=== PATIENT | female | born 1985 | race Caucasian/White ===

== ENCOUNTER 2018-07-30 04:37 | Inpatient (IN) | payer OTHER ==
--- NOTE | 2018-07-30 05:28 | OBADHP ---
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 Oc Salmeron epidural for pain control expectant management admission labs patient reports GBS negative per last office visit yesterday chart pending Vital Signs Provider: Reviewed; Within Normal Limits IP Chief Complaint: Uterine contractions; Suspected ruptured membranes Dilatation, Provider: Oneal MONTES AdmitDate IP: 39.6 IP Adm Impression: Term, intrauterine IP Admit Plan: Admit to unit
[2018-07-30 05:39] VITALS: BMI 27.9
[2018-07-30 06:07] LABS: BASO # 0.1 K/uL (0.0-0.2); BASO % 0.4 % (0.0-2.0); EOS # 0.1 K/uL (0.0-0.7); EOS % 0.8 % (0.0-4.0); HEMOGLOBIN 13.3 g/dL (11.0-16.0); LYMPH # 1.9 K/uL (1.0-4.3); LYMPH % 15.8 % (20.0-40.0); MEAN CELL VOLUME 89.6 fL (81.0-99.0); MEAN CORPUSCULAR HEMOGLOBIN 31.1 pg (27.0-31.0); MEAN CORPUSCULAR HGB CONC 34.7 g/dL (33.0-37.0); MEAN PLATELET VOLUME 9.4 fL (7.2-11.7); MONO # 0.7 K/uL (0.0-0.8); MONO % 5.5 % (0.0-10.0); NEUT # 9.3 K/uL (1.8-7.0); NEUT % 77.5 % (50.0-75.0); RBC 4.28 Mil/uL (3.80-5.20); RED CELL DISTRIBUTION WIDTH 13.6 % (11.5-14.5)
[2018-07-30] MEDS ORDERED: Fentanyl/Bupivacaine HCl 250 ML EPI ONE (06:26)
--- NOTE | 2018-07-30 07:15 | OBADHP ---
Datetime: 07/30/2018 05:23 FHR - Baseline A Provider: 130 Contraction Comments Provider: q1-4 IP Hx Assessment: The History has been Reviewed and is Current NICHD Variability Prov Fetus A: Moderate 6-25bpm NICHD Accel Fetus A IP Provider: [id number] FHR Category Provider Fetus A: Category I EGA AdmitDate IP: 39.6 IP Adm Impression: Term, intrauterine ; Active labor; Ruptured Membranes IP Admit Plan: Admit to unit; Initiate labor protocol
--- NOTE | 2018-07-30 07:18 | OBPN ---
Datetime: 07/30/2018 07:13 IP Progress Impression: Normal progression of labor IP Procedures: Sterile Vag Exam IP Progress Plan: Continue present management Contraction Comments Provider: q1-5 FHR - Baseline A Provider: 130 IP Progress Note Comment: pt was examined at bed side ve 6/-1 anticipate NICHD Accel Fetus A IP Provider: 15X15 FHR Category Provider Fetus A: Category I NICHD Variability Prov Fetus A: Moderate 6-25bpm Dilatation, Provider: 6 Effacement, Provider: 100 Station, Provider: -2 NICHD Decel Fetus A IP Provider: None Datetime: 07/30/2018 05:23 Vital Signs Provider: Reviewed; Within Normal Limits
[2018-07-30] MEDS ORDERED: Oxytocin 30 UNIT 30 UNITS/500 ML BAG IV SCH (08:30)
[2018-07-30] MEDS ORDERED: Oxytocin 30 UNIT 30 UNITS/500 ML BAG IV ONE ×2 (08:47→12:09)
[2018-07-30] MEDS ORDERED: Oxycodone/Acetaminophen 5/325 mg Tab PO PRN ×2 (12:19)
--- NOTE | 2018-07-30 13:19 | OBDS ---
DELIVERY PERSONNEL Delivery Doctor: Gabby Salmeron MD Director Of Clinical Applications: Antoinette Pradhan RNC Anesthesiologist: Alfonso MATERNAL INFORMATION Delivery Anesthesia: Epidural Medications in Delivery: 0 Estimated Blood Loss (ml): 250 Placenta Cultured: No Maternal Complications: None Provider Comments: dr salmeron baby deloverfd in tran. crod arround neck reduced. end eldon no com LABOR SUMMARY EDC: 07/31/2018 00:00 No. Babies in Womb: 1 Attempted: No Labor Anesthesia: Epidural LABOR INFORMATION Reason for Induction: Not Applicable Onset of Labor: 07/30/2018 00:00 Complete Dilatation: 07/30/2018 10:36 Oxytocin: Augmentation Group B Beta Strep: Negative (Annotations: 07/07/2018) MEMBRANES Membranes Rupture Method: Spontaneous Rupture of Membranes: 07/30/2018 04:57 Length of Rupture (hrs): 6.13 Amniotic Fluid Color: Clear Amniotic Fluid Amount: Moderate Amniotic Fluid Odor: None STAGES OF LABOR Stage 1 hrs: 10 Stage 1 min: 36 Stage 2 hrs: 0 Stage 2 min: 29 Stage 3 hrs: 0 Stage 3 min: 5 Total Time in Labor hrs: 11 Total Time in Labor min: 10 VAGINAL DELIVERY Episiotomy: Right Mediolateral Laceration Extension: N/A Laceration Type: None Laceration Repair Note: repaired with 3 chromivc and vicry Initial Vag Sponge Count: 10 Final Vag Sponge Count: 10 Initial Vag Sharps Count: 2 Final Vag Sharps Count: 2 Sponge Count Correct: Yes Sharps Count Correct: Yes BABY A INFORMATION Delivery Date/Time: 07/30/2018 11:05 Method of Delivery: Vaginal Born in Route : No : N/A Forceps: N/A Vacuum Extraction: N/A Shoulder Dystocia : No SHOULDER DYSTOCIA BABY A Infant Delivery Date/Time: 07/30/2018 11:05 PRESENTATION/POSITION BABY A Presentation: Cephalic Cephalic Presentation: N/A Vertex Position: Right Occipital Anterior Breech Presentation: N/A PLACENTA INFORMATION BABY A Placenta Delivery Time : 07/30/2018 11:10 Placenta Method of Delivery: Spontaneous Placenta Status: Delivered SCORES BABY A Heart Rate 1 min: >100 bpm Resp Effort 1 min: Good Cry Reflex Irritability 1 min: Cough or Sneeze or Pulls Away Muscle Tone 1 min: Active Motion Color 1 min: Body [place], Extremities Blue SCORE 1 MIN: 9 Heart Rate 5 min: >100 bpm Resp Effort 5 min: Good Cry Reflex Irritability 5 min: Cough or Sneeze or Pulls Away Muscle Tone 5 min: Active Motion Color 5 min: Body [place], Extremities Blue SCORE 5 MIN: 9 INFORMATION BABY A Gestational Age at Delivery: 39.6 Gestational Status: Term Infant Outcome : Liveborn Infant Condition : Stable Sex: Male IDENTIFICATION/MEDS BABY A ID Band Number: [id number] ID Band Location: Left Leg; Left Arm Sensor Applied: Yes Sensor Number: [id number] Sensor Location : Cord Clamp Vitamin K Given : Aquamephyton 1 mg IM; Left Thigh Erythromycin Given: Given Both Eyes WEIGHT/LENGTH BABY A Infant Birthweight (gms): 3150 Weight (lb): 6 Infant Weight (oz): 15 Infant Length Inches: 19.50 Length cms: 49.5 CORD INFORMATION BABY A No. Cord Vessels: 3 Nuchal Cord : Around Neck x1, Loose Cord Blood Taken: Yes Infant Suction: Mouth; Nose ASSESSMENT BABY A Infant Complications: Multiple Variable Decels Physical Findings at Delivery: Within Normal Limits Respirations: Appears Normal Care By: Carlitos Transferred To: Remains with Mother
[2018-07-30] MEDS: Benzocaine/Menthol 20%-0.5% Topical Spray (60 ml) TOP PRN (16:23)
--- NOTE | 2018-07-31 06:55 | OBPPN ---
Datetime: 07/31/2018 06:50 PP Pain Prov: Within normal limits PP Nausea Prov: Denies PP Flatus Prov: Yes PP Abdomen/Uterus Prov: Normal PP Lochia Prov: Normal PP Extremities Prov: Normal PP Impression Prov: Normal progression PP Plan Prov: Continue present management PP Progress Note Prov: pt was sen at bed side, pain undr control,no n/v, tolateimg dit,voiding,min l ochia, flatus + ppd#1 cont p care cont pain ma Vital Signs Provider PP: Reviewed; Within Normal Limits
[2018-07-31 08:24] LABS: BASO % 0.3 % (0.0-2.0); EOS # 0.1 K/uL (0.0-0.7); HEMOGLOBIN 11.5 g/dL (11.0-16.0); LYMPH # 1.5 K/uL (1.0-4.3); LYMPH % 11.1 % (20.0-40.0); MEAN CELL VOLUME 89.9 fL (81.0-99.0); MEAN CORPUSCULAR HEMOGLOBIN 30.7 pg (27.0-31.0); MEAN CORPUSCULAR HGB CONC 34.2 g/dL (33.0-37.0); MEAN PLATELET VOLUME 8.5 fL (7.2-11.7); MONO # 0.7 K/uL (0.0-0.8); NEUT # 10.9 K/uL (1.8-7.0); NEUT % 82.6 % (50.0-75.0); RBC 3.76 Mil/uL (3.80-5.20); RED CELL DISTRIBUTION WIDTH 13.5 % (11.5-14.5); WHITE BLOOD COUNT 13.2 K/uL (4.8-10.8)
[2018-08-01] MEDS: Benzocaine/Menthol 20%-0.5% Topical Spray (60 ml) TOP PRN (08:59)
--- NOTE | 2018-08-01 14:31 | OBPPN ---
Datetime: 08/01/2018 14:23 PP Nausea Prov: Denies PP Flatus Prov: Yes PP BM Prov: Yes PP Heart Prov: Normal PP Lungs Prov: Normal PP Abdomen/Uterus Prov: Normal PP Lochia Prov: Normal PP Extremities Prov: Normal PP Comments Phys Exam Prov: Abdomen: Soft, +Bowel sounds, non-tender, fundus is firm and below the u mbilcus. PP Impression Prov: Normal progression PP Plan Prov: Discharge PP Progress Note Prov: Pt was seen and examined at bedside. Patient is doing well and pain is well c ontrolled. Patient denies any symptoms of fever, chills, nausea, vomiting, chest pain, palpitations, SOB, headache, dizziness and calf tenderness VS and Labs are WNL PE WNL Pt is a 36 year old GP1P1 delivered at 39.6 weeks: -Normal course -Discharge home today - F/u in the clinic in 3 weeks Datetime: 08/01/2018 12:54 PP Pain Prov: Within normal limits
[2018-08-01] MEDS ORDERED: Measles, Mumps, and Rubella 0.5 ML VIAL SC ONE (14:40)
[2018-08-01 20:49] VITALS: BP 113/76; PULSE 98; RESP 18; TEMP 98.7; O2SAT 99
== END 2018-08-01 14:40 | disposition home or self-care (01) | DRG 807 ==
LOC: C.EROB 04:37 → C.4D 05:29 → C.4M 13:39
PROVIDERS: ADMIT Obstetrics & Gynecology; ATTEND Obstetrics & Gynecology
PROC: 0W8NXZZ Division of Female Perineum, External Approach (ICD-10-PCS; principal; 2018-07-30)
PROC: 10E0XZZ Delivery of Products of Conception, External Approach (ICD-10-PCS; 2018-07-30)
DX: O69.81X0 Labor and delivery complicated by cord around neck, without compression, not applicable or unspecified (principal); O76 Abnormality in fetal heart rate and rhythm complicating labor and delivery; Z3A.39 39 weeks gestation of pregnancy; Z37.0 Single live birth